=== PATIENT | male | born 1990 | race Caucasian/White ===

== ENCOUNTER 2018-08-02 09:48 | Emergency (ER) | payer BC, MEDICAID ==
[2018-08-02] MEDS ORDERED: Sodium Chloride 0.9% 10 ML Syringe FLUSH PRN (10:36)
[2018-08-02] MEDS ORDERED: fentaNYL 100 MCG/2 ML SDV IVPUSH ONE ×2 (10:36→13:09)
--- NOTE | 2018-08-02 10:42 | EDM.PDOC ---
ED HPI GENERAL MEDICAL PROBLEM - General Chief Complaint: General Stated Complaint: RIGHT NECK SWELLING/CYST Time Seen by Provider: 08/02/18 10:31 Source of Information: Reports: Patient, Family, RN Notes Reviewed History Limitations: Reports: No Limitations - History of Present Illness INITIAL COMMENTS - FREE TEXT/NARRATIVE: 27-year-old gentleman presents to the emergency department today with complaint of neck pain, he has a mass on the right side of his neck this initially was biopsied thought to be bacterial cause unfortunately it has doubled in size over the last 24 hours he was scheduled to have this removed on Friday of this week. No fevers he states he does have some problems swallowing but breathing is okay Right Neck Pain Score (Numeric/FACES): 7 - Related Data Allergies Allergy/AdvReac Type Severity Reaction Status Date / Time No Known Allergies Allergy Verified 08/02/18 10:07 Home Meds: Home Meds NK [No Known Home Meds] 08/02/18 [History] Past Medical History - Infectious Disease History Infectious Disease History: Reports: Chicken Pox - Past Surgical History Head Surgeries/Procedures: Reports: None Musculoskeletal Surgical History: Reports: Other (See Below) Dermatological Surgical History: Reports: None Social & Family History - Tobacco Use Smoking Status *Q: Current Every Day Smoker Years of Tobacco use: 10 Packs/Tins Daily: 0.5 Used Tobacco, but Quit: No - Caffeine Use Caffeine Use: Reports: Coffee, Soda - Recreational Drug Use Recreational Drug Use: No ED ROS GENERAL - Review of Systems Review Of Systems: See Below Constitutional: Reports: No Symptoms HEENT: Reports: Other Respiratory: Reports: No Symptoms Cardiovascular: Reports: No Symptoms GI/Abdominal: Reports: No Symptoms : Reports: No Symptoms ED EXAM, GENERAL - Physical Exam Exam: See Below Free Text/Narrative:: Examination of the neck he does have a large mass on the right side of his neck approximately size a softball it is tender to the touch no erythema is noted marked edema Exam Limited By: No Limitations General Appearance: Alert, WD/WN, No Apparent Distress Throat/Mouth: Normal Inspection, Normal Lips, Normal Teeth, Normal Gums, Normal Oropharynx, Normal Voice, No Airway Compromise Head: Atraumatic, Normocephalic Respiratory/Chest: No Respiratory Distress, Lungs Clear, Normal Breath Sounds, No Accessory Muscle Use, Chest Non-Tender Cardiovascular: Normal Peripheral Pulses, Regular Rate, Rhythm, No Murmur, No Rub Course - Vital Signs Last Recorded V/S: Last Vital Signs Temp 97.7 F 08/02/18 10:14 Pulse 76 08/02/18 11:20 Resp 12 08/02/18 11:20 BP 131/86 08/02/18 11:20 Pulse Ox 97 08/02/18 11:20 - Orders/Labs/Meds Orders: Active Orders 24 hr Category Date Time Status Peripheral IV Care [RC] . DIRECTED Care 08/02/18 10:37 Active Soft Tissue Neck w Cont [CT] Stat Exams 08/02/18 10:36 Taken Iopamidol [Isovue-300 (61%)] Med 08/02/18 10:45 Active 100 ml IV . DIRECTED Sodium Chloride 0.9% [Normal Saline] 1,000 ml Med 08/02/18 10:45 Active IV ASDIRECTED Sodium Chloride 0.9% [Normal Saline] 100 ml Med 08/02/18 10:45 Active IV ASDIRECTED Sodium Chloride 0.9% [Saline Flush] Med 08/02/18 10:36 Active 10 ml FLUSH ASDIRECTED PRN Peripheral IV Insertion Adult [OM.PC] Urgent Oth 08/02/18 10:36 Ordered Medication Orders Sodium Chloride (Normal Saline) 1,000 mls @ 500 mls/hr IV ASDIRECTED [facility] Last Admin: 08/02/18 10:54 Dose: 500 mls/hr Sodium Chloride (Normal Saline) 100 mls @ 3 mls/sec IV ASDIRECTED JOVANA Last Admin: 08/02/18 11:38 Dose: 3.5 mls/sec Iopamidol (Isovue-300 (61%)) 100 ml IV . DIRECTED JOVANA Last Admin: 08/02/18 11:38 Dose: 100 ml Sodium Chloride (Saline Flush) 10 ml FLUSH ASDIRECTED PRN PRN Reason: Keep Vein Open Last Admin: 08/02/18 10:56 Dose: 10 ml Labs: Laboratory Tests 08/02/18 08/02/18 Range/Units 10:42 10:42 WBC 17.6 H (4.5-11.0) K/uL RBC 5.15 (4.30-5.90) M/uL Hgb 14.6 (12.0-15.0) g/dL Hct 42.4 (40.0-54.0) % MCV 82 (80-98) fL MCH 28 (27-31) pg MCHC 34 (32-36) % Plt Count 208 (150-400) K/uL Neut % (Auto) 75 H (36-66) % Lymph % (Auto) 11 L (24-44) % [place] % (Auto) 13 H (2-6) % Eos % (Auto) 1 L (2-4) % Baso % (Auto) 0 (0-1) % Sodium 137 L (140-148) mmol/L Potassium 3.8 (3.6-5.2) mmol/L Chloride 100 (100-108) mmol/L Carbon Dioxide 29 (21-32) mmol/L Anion Gap 11.8 (5.0-14.0) mmol/L BUN 6 L (7-18) mg/dL Creatinine 1.1 (0.8-1.3) mg/dL Est Cr Clr Drug Dosing 107.44 mL/min Estimated GFR (MDRD) > 60 (>60) Glucose 106 (74-106) mg/dL Calcium 9.3 (8.5-10.1) mg/dL Total Bilirubin 1.0 (0.2-1.0) mg/dL AST 16 (15-37) U/L ALT 30 (12-78) U/L Alkaline Phosphatase 85 (46-116) U/L Total Protein 7.4 (6.4-8.2) g/dL Albumin 3.5 (3.4-5.0) g/dL Globulin 3.9 H (2.3-3.5) g/dL Albumin/Globulin Ratio 0.9 L (1.2-2.2) Meds: Medications Generic Name Dose Route Start Last Admin Trade Name Freq PRN Reason Stop Dose Admin Sodium Chloride 1,000 mls @ 500 mls/hr 08/02/18 10:45 08/02/18 10:54 Normal Saline IV 500 mls/hr ASDIRECTED JOVANA Administration Sodium Chloride 100 mls @ 3 mls/sec 08/02/18 10:45 08/02/18 11:38 Normal Saline IV 3.5 mls/sec ASDIRECTED JOVANA Administration Iopamidol 100 ml 08/02/18 10:45 08/02/18 11:38 Isovue-300 (61%) IV 100 ml . DIRECTED JOVANA Administration Sodium Chloride 10 ml 08/02/18 10:36 08/02/18 10:56 Saline Flush FLUSH 10 ml ASDIRECTED PRN Administration Keep Vein Open Discontinued Medications Generic Name Dose Route Start Last Admin Trade Name Freq PRN Reason Stop Dose Admin Fentanyl 50 mcg 08/02/18 10:36 08/02/18 10:54 Sublimaze IVPUSH 08/02/18 10:37 50 mcg ONETIME ONE Administration Fentanyl 50 mcg 08/02/18 13:09 Sublimaze IVPUSH 08/02/18 13:10 ONETIME ONE Ketamine HCl 20 mg 08/02/18 13:09 Ketalar IV 08/02/18 13:10 ONETIME ONE Departure - Departure Time of Disposition: 13:34 Disposition: Home, Self-Care 01 Condition: Fair Clinical Impression: Second branchial cleft cyst - Discharge Information Referrals: Natali Freeman PA-C [Primary Care Provider] - Forms: ED Department Discharge Additional Instructions: Take full course of antibiotics, use ibuprofen for baseline pain control, use hydrocodone for breakthrough pain, please keep your appointment with ear nose and throat on Friday for surgical resection of your neck mass, call return to the emergency department worsening of symptoms - My Orders Last 24 Hours: My Active Orders 08/02/18 10:36 Soft Tissue Neck w Cont [CT] Stat Sodium Chloride 0.9% [Saline Flush] 10 ml FLUSH ASDIRECTED PRN Peripheral IV Insertion Adult [OM.PC] Urgent 08/02/18 10:37 Peripheral IV Care [RC] . DIRECTED 08/02/18 10:45 Iopamidol [Isovue-300 (61%)] 100 ml IV . DIRECTED Sodium Chloride 0.9% [Normal Saline] 1,000 ml IV ASDIRECTED Sodium Chloride 0.9% [Normal Saline] 100 ml IV ASDIRECTED - Assessment/Plan Last 24 Hours: My Active Orders 08/02/18 10:36 Soft Tissue Neck w Cont [CT] Stat Sodium Chloride 0.9% [Saline Flush] 10 ml FLUSH ASDIRECTED PRN Peripheral IV Insertion Adult [OM.PC] Urgent 08/02/18 10:37 Peripheral IV Care [RC] . DIRECTED 08/02/18 10:45 Iopamidol [Isovue-300 (61%)] 100 ml IV . DIRECTED Sodium Chloride 0.9% [Normal Saline] 1,000 ml IV ASDIRECTED Sodium Chloride 0.9% [Normal Saline] 100 ml IV ASDIRECTED Plan: Assessment Acuity = acute Site and laterality = second brachial cleft cyst enlarged to 5 cm Etiology = physiologic Manifestations = pain Location of injury = Home Lab values = WBC elevated at 17.5 consistent leukocytosis remainder lab work is unremarkable, CT scan of the neck describes a similar mass to prior CT done the end of June airway is not compromised Plan Called discussed case with Dr. Solano ENT at [facility], recommend starting antibiotics of Augmentin 875 by mouth twice a day 10 days, prescription for hydrocodone 5/325 one tab by mouth 3 times a day total #20 he does have surgical appointment set with ENT at [facility] for surgical resection This note was dictated using [employer] voice recognition software please call with any questions on syntax or grammar.
[2018-08-02] MEDS ORDERED: Sodium Chloride 0.9% 100 ML IV SCH (10:45)
[2018-08-02] MEDS ORDERED: Iopamidol 612 MG/ML 100 ML Bottle IV SCH (10:45)
[2018-08-02] MEDS ORDERED: Sodium Chloride 0.9% 1,000 ML IV SCH (10:45)
[2018-08-02] MEDS ORDERED: Ketamine 500 MG/5 ML MDV IV ONE (13:09)
== END 2018-08-02 13:52 | disposition home or self-care (01) ==
LOC: JP.ED 09:48
DX: Q18.0 Sinus, fistula and cyst of branchial cleft (principal); F17.210 Nicotine dependence, cigarettes, uncomplicated
CPT/HCPCS: 36415; 70491; 80053; 85025; 96361; 96374; 96375; 96376; 99284; J3010; J7030; J7050; Q9967; 99283

== ENCOUNTER 2019-10-17 20:07 | Emergency (ER) | payer MEDICAID, OTHER ==
[2019-10-17] MEDS ORDERED: Ondansetron 4 MG/2 ML SDV IVPUSH ONE (20:14)
[2019-10-17] MEDS ORDERED: HYDROmorphone 1 MG/ML Syringe IVPUSH ONE (20:14)
[2019-10-17] MEDS ORDERED: Lactated Ringers 1,000 ML IV ONE (20:14)
--- NOTE | 2019-10-17 20:20 | EDM.PDOC ---
ED HPI GENERAL MEDICAL PROBLEM - General Chief Complaint: Abdominal Pain Stated Complaint: STONES Time Seen by Provider: 10/17/19 20:10 Source of Information: Reports: Patient History Limitations: Reports: No Limitations - History of Present Illness INITIAL COMMENTS - FREE TEXT/NARRATIVE: 20-year-old otherwise healthy male presents to concerns of left-sided flank pain. He reports that 5 days ago he was diagnosed a left-sided kidney stone. He's been having intermittent pain in the left flank and left lower abdomen since this time. He went into a clinic 2 days ago and was given additional pain medication, no repeat imaging. He denies any fevers or chills. No hematuria. No prior history of kidney stones. The patient is currently severe, intermittent, in the left flank with radiation into the left lower abdomen, associated nausea. Left Lower Abdomen Pain Score (Numeric/FACES): 0 - Related Data Allergies Allergy/AdvReac Type Severity Reaction Status Date / Time No Known Allergies Allergy Verified 10/17/19 20:14 Home Meds: Home Meds Morphine Sulfate 15 mg PO Q4H PRN 10/17/19 [History] Tamsulosin [Tamsulosin 24 Hr] 0.4 mg PO DAILY 10/17/19 [History] Past Medical History Musculoskeletal History: Reports: None - Infectious Disease History Infectious Disease History: Reports: Chicken Pox - Past Surgical History Head Surgeries/Procedures: Reports: None Musculoskeletal Surgical History: Reports: Other (See Below) Dermatological Surgical History: Reports: None Social & Family History - Caffeine Use Caffeine Use: Reports: Coffee, Soda ED ROS GENERAL - Review of Systems Review Of Systems: See Below Constitutional: Reports: No Symptoms HEENT: Reports: No Symptoms Respiratory: Reports: No Symptoms Cardiovascular: Reports: No Symptoms Endocrine: Reports: No Symptoms GI/Abdominal: Reports: Nausea : Reports: Flank Pain Musculoskeletal: Reports: No Symptoms Skin: Reports: No Symptoms Neurological: Reports: No Symptoms Psychiatric: Reports: No Symptoms Hematologic/Lymphatic: Reports: No Symptoms Immunologic: Reports: No Symptoms ED EXAM, RENAL/ - Physical Exam Exam: See Below Exam Limited By: No Limitations General Appearance: Alert, Moderate Distress Ears: Normal External Exam Nose: Normal Inspection Throat/Mouth: Normal Inspection Head: Atraumatic, Normocephalic Neck: Normal Inspection Respiratory/Chest: Lungs Clear Cardiovascular: Regular Rate, Rhythm GI/Abdominal: Soft, Non-Tender Back Exam: Normal Inspection, CVA Tenderness (L). No: CVA Tenderness (R) Extremities: Normal Inspection Neurological: Alert, Oriented Psychiatric: Normal Affect Skin Exam: Warm, Dry Course - Vital Signs Last Recorded V/S: Last Vital Signs Temp 37.0 C 10/17/19 21:25 Pulse 59 L 10/17/19 21:25 Resp 16 10/17/19 21:25 BP 110/66 10/17/19 21:25 Pulse Ox 98 10/17/19 21:25 - Orders/Labs/Meds Labs: Laboratory Tests 10/17/19 10/17/19 10/17/19 Range/Units 20:27 20:27 20:35 WBC 15.9 H (4.5-11.0) K/uL RBC 5.01 (4.30-5.90) M/uL Hgb 13.9 (12.0-15.0) g/dL Hct 41.4 (40.0-54.0) % MCV 83 (80-98) fL MCH 28 (27-31) pg MCHC 34 (32-36) % Plt Count 283 (150-400) K/uL Sodium 139 L (140-148) mmol/L Potassium 3.7 (3.6-5.2) mmol/L Chloride 101 (100-108) mmol/L Carbon Dioxide 27 (21-32) mmol/L Anion Gap 14.7 H (5.0-14.0) mmol/L BUN 14 D (7-18) mg/dL Creatinine 1.3 (0.8-1.3) mg/dL Est Cr Clr Drug Dosing 92.85 mL/min Estimated GFR (MDRD) > 60 (>60) Glucose 101 (74-106) mg/dL Calcium 9.7 (8.5-10.1) mg/dL Total Bilirubin 0.5 (0.2-1.0) mg/dL AST 21 (15-37) U/L ALT 27 (12-78) U/L Alkaline Phosphatase 79 (46-116) U/L Total Protein 7.7 (6.4-8.2) g/dL Albumin 4.2 (3.4-5.0) g/dL Globulin 3.5 (2.3-3.5) g/dL Albumin/Globulin Ratio 1.2 (1.2-2.2) Urine Color Yellow (YELLOW) Urine Appearance Slightly cloudy A (CLEAR) Urine pH 5.5 (5.0-8.0) Ur Specific [place] >= 1.030 (1.008-1.030) Urine Protein Trace H (NEGATIVE) mg/dL Urine Glucose (UA) Negative (NEGATIVE) mg/dL Urine Ketones Negative (NEGATIVE) mg/dL Urine Occult Blood Moderate H (NEGATIVE) Urine Nitrite Negative (NEGATIVE) Urine Bilirubin Negative (NEGATIVE) Urine Urobilinogen 1.0 (0.2-1.0) EU/dL Ur Leukocyte Esterase Negative (NEGATIVE) Urine RBC 10-20 H (0-5) Urine WBC 0-5 (0-5) Ur Epithelial Cells Rare Amorphous Sediment Not seen Urine Bacteria Rare Urine Mucus Few Meds: Medications Discontinued Medications Generic Name Dose Route Start Last Admin Trade Name Freq PRN Reason Stop Dose Admin Hydromorphone HCl 1 mg 10/17/19 20:14 10/17/19 20:25 Dilaudid IVPUSH 10/17/19 20:15 1 mg ONETIME ONE Administration Lactated Ringer's 1,000 mls @ 1,000 mls/hr 10/17/19 20:14 10/17/19 20:24 Ringers, Lactated IV 10/17/19 21:13 1,000 mls/hr BOLUS ONE Administration Ketorolac Tromethamine 30 mg 10/17/19 20:52 10/17/19 21:01 Toradol IVPUSH 10/17/19 20:53 30 mg ONETIME ONE Administration Ondansetron HCl 4 mg 10/17/19 20:14 10/17/19 20:25 Zofran IVPUSH 10/17/19 20:15 4 mg ONETIME ONE Administration - Re-Assessments/Exams Free Text/Narrative Re-Assessment/Exam: 28-year-old with reported history of recently diagnosed left sided kidney stone presents with persistent severe left-sided flank pain for 5 days now. Appears quite uncomfortable on exam. Denies any systemic symptoms. At this point we will need to repeat his CT to assess for obstruction, as well as check basic labs and UA for signs of infection. We are treating him with IV fluids, IV pain medications and antiemetics. 10/17/19 20:18 Free Text/Narrative Re-Assessment/Exam: Labs unremarkable, urine without signs of infection. CT obtained and shows a 2 mm stone at the UVJ junction with moderate hydronephrosis. Went back to discuss this and reevaluate the patient, he is currently now completely asymptomatic. I suspect he is now passed the stone. He is going to ambulate and we will observe him a bit longer in the ED to ensure he remains asymptomatic. If remains comfortable will be safe for discharge. I discussed the importance of PCP follow-up to addressed risk factors for stone recurrence. 10/17/19 21:30 Departure - Departure Time of Disposition: 21:33 Disposition: Home, Self-Care 01 Clinical Impression: Kidney stone on left side - Discharge Information Instructions: Renal Colic, [id number], Kidney Stones Forms: ED Department Discharge Additional Instructions: You have now likely passed your kidney stone. Please return to the ER if your pain returns, as you may need referral to a urologist. We recommend that you follow up with a primary doctor.
[2019-10-17] MEDS ORDERED: Ketorolac 30 MG/ML SDV IVPUSH ONE (20:52)
--- NOTE | 2019-10-17 21:07 | CRLCT ---
INDICATION: Left flank pain TECHNIQUE: CT abdomen and pelvis without contrast. COMPARISON: None. FINDINGS: Lower chest: Unremarkable. Liver: Normal in size and attenuation. No masses. Gallbladder and bile ducts: No stones or inflammation. No biliary dilatation. Pancreas: Unremarkable. No mass or inflammation. Spleen: Normal in size. No masses. Adrenal glands: Normal in size. No nodules. Kidneys: Small 2 mm stone at the left ureterovesical junction is causing moderate hydronephrosis. No other kidney or ureteral stones. GI tract: Unremarkable. Normal in caliber. No sign of mass or inflammation. Normal appendix. Vasculature: Unremarkable. Lymph nodes: No lymphadenopathy. Abdominal wall/Omentum/Peritoneum: Unremarkable. No sign of mass or infiltration. No free air or significant free fluid. Pelvis: Unremarkable. No pelvic masses. Bones: Unremarkable for age. IMPRESSION: 2 mm stone at the left UVJ causing moderate hydronephrosis. No other stones. Please note that all CT scans at this facility use dose modulation, iterative reconstruction, and/or weight-based dosing when appropriate to reduce radiation dose to as low as reasonably achievable. Dictated by Aj Randall MD @ Oct 17 2019 9:03PM Signed by Dr. Aj Randall @ Oct 17 2019 9:06PM
== END 2019-10-17 21:40 | disposition home or self-care (01) ==
LOC: JP.ED 20:07
DX: N13.2 Hydronephrosis with renal and ureteral calculous obstruction (principal)
CPT/HCPCS: 36415; 74176; 80053; 81001; 85027; 96361; 96374; 96375; 99284; J1170; J1885; J2405; J7120

== ENCOUNTER 2020-06-03 19:17 | Emergency (ER) | payer MEDICAID, OTHER ==
--- NOTE | 2020-06-03 20:57 | EDM.PDOC ---
ED HPI GENERAL MEDICAL PROBLEM - General Chief Complaint: Respiratory Problem Stated Complaint: COUGH,SOB,FEVER Time Seen by Provider: 06/03/20 20:44 Source of Information: Reports: Patient, Family, Old Records, RN Notes Reviewed History Limitations: Reports: No Limitations - History of Present Illness INITIAL COMMENTS - FREE TEXT/NARRATIVE: 29-year-old gentleman presents emergency department a complaint of chest congestion, he was recently evaluated in the urgent care clinic on 715 approximately 10 days ago underwent chest x-ray which was clear he had been ill for 2 days at that time had had fevers 1 member of the household was diagnosed with pneumonia they did an empiric trial of a azithromycin he did complete the course he has been off antibiotics now for 5 days. He states initially he felt better after completing the antibiotics however he continues to have cough and congestion and is still having fevers, he has no known COVID exposure however family has been tested for COVID and results have all been negative - Related Data Allergies Allergy/AdvReac Type Severity Reaction Status Date / Time No Known Allergies Allergy Verified 10/17/19 20:14 Home Meds: Home Meds guaiFENesin [Mucinex] 600 mg PO DAILY 06/03/20 [History] Past Medical History HEENT History: Reports: Impaired Vision Genitourinary History: Reports: Other (See Below) Other Genitourinary History: known kidney stone l side 2018 Musculoskeletal History: Reports: Fracture Other Musculoskeletal History: fx ribs - Infectious Disease History Infectious Disease History: Reports: Chicken Pox - Past Surgical History Head Surgeries/Procedures: Reports: None HEENT Surgical History: Reports: Other (See Below) Other HEENT Surgeries/Procedures: r lymph noid surgery Other Respiratory Surgeries/Procedures: smaller lung size GI Surgical History: Reports: Other (See Below) Other GI Surgeries/Procedures: xyphoid surgery Dermatological Surgical History: Reports: None Social & Family History - Tobacco Use Smoking Status *Q: Former Smoker Used Tobacco, but Quit: Yes Month/Year Tobacco Last Used: 11/2017 - Caffeine Use Caffeine Use: Reports: Coffee, Soda, Tea Caffeine Use Comment: one soda per day - Recreational Drug Use Recreational Drug Use: No ED ROS GENERAL - Review of Systems Review Of Systems: See Below Constitutional: Reports: Fever, Chills HEENT: Reports: No Symptoms Respiratory: Reports: Shortness of Breath, Cough, Sputum (White) Cardiovascular: Reports: No Symptoms GI/Abdominal: Reports: No Symptoms : Reports: No Symptoms ED EXAM, GENERAL - Physical Exam Exam: See Below Exam Limited By: No Limitations General Appearance: Alert, WD/WN, No Apparent Distress Eye Exam: Bilateral Eye: Normal Inspection Ears: Normal External Exam, Normal Canal, Hearing Grossly Normal, Normal TMs Nose: Normal Inspection, Normal Mucosa, No Blood Throat/Mouth: Normal Inspection, Normal Lips, Normal Teeth, Normal Gums, Normal Oropharynx, Normal Voice, No Airway Compromise Head: Atraumatic, Normocephalic Neck: Normal Inspection, Supple, Non-Tender, Full Range of Motion Respiratory/Chest: No Respiratory Distress, No Accessory Muscle Use, Wheezing (Left side expiratory faint) Cardiovascular: Regular Rate, Rhythm, No Murmur GI/Abdominal: Soft, Non-Tender Back Exam: Normal Inspection, Full Range of Motion. No: CVA Tenderness (R), CVA Tenderness (L) Extremities: No Pedal Edema Course - Vital Signs Last Recorded V/S: Last Vital Signs Temp 100.2 F 06/03/20 19:49 Pulse 105 H 06/03/20 19:49 Resp 16 06/03/20 19:49 BP 135/80 06/03/20 19:49 Pulse Ox 95 06/03/20 19:49 - Orders/Labs/Meds Orders: Active Orders 24 hr Category Date Time Status Chest 2V [CR] Urgent Exams 06/03/20 20:50 Taken Labs: Laboratory Tests 06/03/20 06/03/20 06/03/20 Range/Units 21:02 21:02 21:02 WBC 14.4 H (4.5-11.0) K/uL RBC 5.21 (4.30-5.90) M/uL Hgb 14.4 (12.0-15.0) g/dL Hct 43.6 (40.0-54.0) % MCV 84 (80-98) fL MCH 28 (27-31) pg MCHC 33 (32-36) % Plt Count 298 (150-400) K/uL Neut % (Auto) 77 H (36-66) % Lymph % (Auto) 12 L (24-44) % [place] % (Auto) 10 H (2-6) % Eos % (Auto) 1 L (2-4) % Baso % (Auto) 0 (0-1) % Sodium 136 L (140-148) mmol/L Potassium 3.6 (3.6-5.2) mmol/L Chloride 98 L (100-108) mmol/L Carbon Dioxide 26 (21-32) mmol/L Anion Gap 15.6 H (5.0-14.0) mmol/L BUN 11 (7-18) mg/dL Creatinine 1.2 (0.8-1.3) mg/dL Est Cr Clr Drug Dosing 99.69 mL/min Estimated GFR (MDRD) > 60 (>60) Glucose 98 (74-106) mg/dL Lactic Acid (0.4-2.0) mmol/L Calcium 9.4 (8.5-10.1) mg/dL Total Bilirubin 1.0 D (0.2-1.0) mg/dL AST 20 (15-37) U/L ALT 32 (12-78) U/L Alkaline Phosphatase 77 (46-116) U/L Lactate Dehydrogenase 172 (85-227) U/L C-Reactive Protein 5.55 H (0.0-0.3) mg/dL Total Protein 8.1 (6.4-8.2) g/dL Albumin 4.2 (3.4-5.0) g/dL Globulin 3.9 H (2.3-3.5) g/dL Albumin/Globulin Ratio 1.1 L (1.2-2.2) Procalcitonin ng/mL 06/03/20 06/03/20 Range/Units 21:02 21:02 WBC (4.5-11.0) K/uL RBC (4.30-5.90) M/uL Hgb (12.0-15.0) g/dL Hct (40.0-54.0) % MCV (80-98) fL MCH (27-31) pg MCHC (32-36) % Plt Count (150-400) K/uL Neut % (Auto) (36-66) % Lymph % (Auto) (24-44) % [place] % (Auto) (2-6) % Eos % (Auto) (2-4) % Baso % (Auto) (0-1) % Sodium (140-148) mmol/L Potassium (3.6-5.2) mmol/L Chloride (100-108) mmol/L Carbon Dioxide (21-32) mmol/L Anion Gap (5.0-14.0) mmol/L BUN (7-18) mg/dL Creatinine (0.8-1.3) mg/dL Est Cr Clr Drug Dosing mL/min Estimated GFR (MDRD) (>60) Glucose (74-106) mg/dL Lactic Acid 0.9 (0.4-2.0) mmol/L Calcium (8.5-10.1) mg/dL Total Bilirubin (0.2-1.0) mg/dL AST (15-37) U/L ALT (12-78) U/L Alkaline Phosphatase (46-116) U/L Lactate Dehydrogenase (85-227) U/L C-Reactive Protein (0.0-0.3) mg/dL Total Protein (6.4-8.2) g/dL Albumin (3.4-5.0) g/dL Globulin (2.3-3.5) g/dL Albumin/Globulin Ratio (1.2-2.2) Procalcitonin < 0.05 ng/mL Departure - Departure Time of Disposition: 21:49 Disposition: Home, Self-Care 01 Condition: Fair Clinical Impression: Viral syndrome - Discharge Information Instructions: Viral Respiratory Infection, [id number] Referrals: PCP,None [Primary Care Provider] - Forms: ED Department Discharge Additional Instructions: Try the albuterol as needed for shortness of breath and cough symptoms, Tylenol and Motrin as needed for fever control, please followup with your primary care provider in 3-5 days if not better, please call return to the emergency department with worsening of symptoms. Sepsis Event Note (ED) - Evaluation Sepsis Screening Result: Possible Sepsis Risk - Focused Exam Vital Signs: Vital Signs Temp Pulse Resp BP Pulse Ox 06/03/20 19:49 100.2 F 105 H 16 135/80 95 - My Orders Last 24 Hours: My Active Orders 06/03/20 20:50 Chest 2V [CR] Urgent - Assessment/Plan Last 24 Hours: My Active Orders 06/03/20 20:50 Chest 2V [CR] Urgent Plan: Assessment Acuity = acute Site and laterality = viral syndrome Etiology = unknown Manifestations = cough, sputum production Location of injury = Home Lab values = WBC elevated 14.4 consistent leukocytosis, lactic acid normal 0.9 CRP elevated 5.5 CMP unremarkable procalcitonin less than 0.05 chest x-ray shows no acute process chest x-ray is very similar to the one taken 10 days ago Plan I did review lab work chest x-ray results with him when trying albuterol inhaler for symptomatic relief continue with symptomatic care follow-up primary care 3 to 5 days if not better This note was dictated using [employer] voice recognition software please call with any questions on syntax or grammar.
--- NOTE | 2020-06-05 10:43 | CR ---
CHEST: 2 view CLINICAL HISTORY:SOB COMPARISON:None FINDINGS: Patient has a moderate to the lower thoracic dextroscoliosis. There is a pectus deformity. The heart size, pulmonary vascularity and hilar structures are normal. No infiltrate effusion or pneumothorax is seen. IMPRESSION: No acute cardiopulmonary process.
== END 2020-06-03 22:00 | disposition home or self-care (01) ==
LOC: JP.ED 19:17
DX: B34.9 Viral infection, unspecified (principal); Z87.891 Personal history of nicotine dependence
CPT/HCPCS: 36415; 71046; 71046-26; 80053; 83605; 83615; 84145; 85025; 86140; 99283-25